=== PATIENT | male | born 1945 | race Caucasian/White ===

== ENCOUNTER → 2024-04-08 | Outpatient (CLI) | payer MEDICARE, SELFPAY ==
[2024-04-08 16:55] LABS: Glucose Estimated Average 163 mg/dL (80-131); Hemoglobin A1C 7.3 % Hgb (4.8-6.0)
[2024-04-08 17:28] LABS: Creatinine MALB Rnd Ur 83 mg/dL (30-125); Microalbumin Creat Ratio 900 mg/gCrea (<30); Microalbumin, Random Urine 747 mg/L (0-300)
[2024-04-08 18:01] LABS: Alanine Aminotransferase < 7 U/L (10-49); Albumin, Serum 4.2 gm/dL (3.4-4.8); Albumin/Globulin Ratio 1.8 (1.2-2.2); Alkaline Phosphatase 66 U/L (46-116); Anion Gap 8 (7-16); Aspartate Amino Transferase < 10 U/L (0-34); BUN/Creatinine Ratio 23 Ratio (12-20); Bilirubin,Total 0.3 mg/dL (0.3-1.2); Blood Urea Nitrogen 18 mg/dL (9-23); Calcium 9.4 mg/dL (8.3-10.6); Calcium (Corrected) 9.4 mg/dL (8.5-10.1); Carbon Dioxide 31.7 mMol/L (20.0-31.0); Cardiac Risk Estimate 4.7 RATIO (4.0-6.7); Chloride 97 mMol/L (98-107); Cholesterol 178 mg/dL (132-200); Creatinine (Component) 0.8 mg/dL (0.6-1.3); Globulin 2.4 gm/dL (2.3-3.5); Glucose 102 mg/dL (74-106); HDL Cholesterol 38 mg/dL (40-60); LDL Cholesterol,Calculated 93 mg/dL (0-130); Osmolality,Calculated 275 (275-295); Potassium 4.1 mMol/L (3.4-5.1); Sodium 137 mMol/L (136-145); Total Protein 6.6 gm/dL (5.7-8.2); Triglycerides 234 mg/dL (30-150); eGFR > 60 See Note
== END | disposition home or self-care (01) ==
LOC: COPL 15:21
PROVIDERS: PCP Specialist; Referring Provider Specialist; Visit Provider Specialist
DX: E11.69 Type 2 diabetes mellitus with other specified complication (principal)
CPT/HCPCS: 36415; 80053; 80061; 82043; 82570; 83036

== ENCOUNTER → 2024-06-18 | Outpatient (CLI) | payer MEDICARE, SELFPAY ==
--- NOTE | 2024-06-18 12:48 | XR_ITS ---
Examination: Bilateral AP knees single view TECHNIQUE: AP bilateral standing knees single view Exam date and time: June 18, 2024 1503 hours FINDINGS: Total right knee arthroplasty. Satisfactory alignment No fracture Severe narrowing, [id number] medial lateral joint spaces left knee with ossified suprapatellar joint bodies noted IMPRESSION: Severe narrowing [id number] medial lateral joint spaces left knee
--- NOTE | 2024-06-18 12:48 | XR_ITS ---
Examination: Knee, left , 3 views Technique: Knee AP, lateral, oblique 3 views Date and time of exam: June 18, 2024 1420 hours INDICATIONS: Knee pain beginning 8 years ago FINDINGS: Advanced tricompartment osteoarthritis Prominent osteopenia Multiple suprapatellar and posterior joint space ossified bodies No fracture IMPRESSION: Advanced tricompartment osteoarthritis
--- NOTE | 2024-06-18 12:48 | XR_ITS ---
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
--- NOTE | 2024-06-18 12:48 | XR_ITS ---
Examination:Left hip AP, lateral, AP pelvis 3 views Technique: Hip AP lateral, AP pelvis, 3 views Exam date and time:June 18, 2024 1420 hours INDICATIONS: Pelvic and left hip pain several days FINDINGS: Old deformity of the left femoral neck Old appearing fractures left inferior and superior pubic rami Moderate narrowing hip joints No acute hip or pelvic fracture IMPRESSION: Moderate bilateral narrowing hip joints No acute hip or pelvic fracture.
== END | disposition home or self-care (01) ==
PROVIDERS: PCP Specialist; Referring Provider Orthopaedic Surgery; Visit Provider Orthopaedic Surgery
DX: M43.26 Fusion of spine, lumbar region (principal); M25.852 Other specified joint disorders, left hip; M17.12 Unilateral primary osteoarthritis, left knee; M25.862 Other specified joint disorders, left knee
CPT/HCPCS: 72100; 73503; 73560; 73564; 73565

== ENCOUNTER → 2024-10-07 | Outpatient (CLI) | payer MEDICARE, SELFPAY ==
--- NOTE | 2024-10-07 15:24 | XR_ITS ---
Examination: Bilateral hips, AP pelvis, 5 views Technique: AP, lateral views both hips, AP pelvis, 5 views Exam date and time: October 07, 2024 1526 hours INDICATIONS: Patient fell last month with injury of both hips, bilateral hip pain. FINDINGS: Severe osteopenia No acute right hip fracture. Left hip shows mild angulation in the subcapital region Bones of the pelvis intact IMPRESSION: No acute right hip fracture Suggest CT scan left hip follow-up to exclude subtle left subcapital hip fracture
== END | disposition home or self-care (01) ==
LOC: SDIM 15:12
PROVIDERS: PCP Specialist; Referring Provider Specialist; Visit Provider Specialist
DX: S79.912A Unspecified injury of left hip, initial encounter (principal); S79.911A Unspecified injury of right hip, initial encounter; W19.XXXA Unspecified fall, initial encounter
CPT/HCPCS: 73523

== ENCOUNTER → 2024-10-13 | Outpatient (CLI) | payer MEDICARE, SELFPAY ==
[2024-10-13 14:52] LABS: Misc Send Out* See Sep Rpt
== END | disposition home or self-care (01) ==
LOC: SLDO 14:40
PROVIDERS: Referring Provider Specialist; Visit Provider Specialist
DX: F11.20 Opioid dependence, uncomplicated (principal)
CPT/HCPCS: 80365; G0480

== ENCOUNTER → 2024-10-25 | Outpatient (CLI) | payer MEDICARE, SELFPAY ==
--- NOTE | 2024-10-25 14:34 | XR_ITS ---
Examination: CT pelvis without intravenous contrast. CT left hip without intravenous contrast 2-D sagittal and coronal reconstructions. Date and time of exam:October 25, 2024, 1500 hours INDICATIONS: Patient fell one month ago with injury to left hip, left hip pain CTDI: vol (mGy) :11 DLP: (mGycm) : 402 Technique: Multiple 3 mm axial sections of the pelvis have been obtained with the 64 slice high resolution scanner. 2-D sagittal and coronal reconstructions. Low dose protocols were performed. One or more of the following dose reduction techniques were used; automated exposure control, adjustment of the mA and/or KV according to patient size, use of iterative reconstruction technique. Findings: Impacted left subcapital hip fracture, acute/subacute Right hip bones of the pelvis intact Prominent osteopenia. Significant prostatomegaly 5.9 cm IMPRESSION: Impacted left subcapital hip fracture
== END | disposition home or self-care (01) ==
LOC: CCTX 14:21
PROVIDERS: PCP Specialist; Referring Provider Specialist; Visit Provider Specialist
DX: S72.092D Other fracture of head and neck of left femur, subsequent encounter for closed fracture with routine healing (principal); W19.XXXD Unspecified fall, subsequent encounter
CPT/HCPCS: 73700

== ENCOUNTER → 2024-11-03 | Outpatient (CLI) | payer MEDICARE, SELFPAY ==
[2024-11-03 13:35] LABS: Glucose Estimated Average 137 mg/dL (80-131); Hemoglobin A1C 6.4 % Hgb (4.8-6.0)
[2024-11-03 14:04] LABS: Alanine Aminotransferase 9 U/L (10-49); Albumin, Serum 4.1 gm/dL (3.4-4.8); Albumin/Globulin Ratio 1.9 (1.2-2.2); Alkaline Phosphatase 59 U/L (46-116); Anion Gap 12 (7-16); Aspartate Amino Transferase 15 U/L (0-34); BUN/Creatinine Ratio 27 Ratio (12-20); Bilirubin,Total 0.2 mg/dL (0.3-1.2); Blood Urea Nitrogen 38 mg/dL (9-23); Calcium 10.1 mg/dL (8.3-10.6); Calcium (Corrected) 10.1 mg/dL (8.5-10.1); Carbon Dioxide 24.7 mMol/L (20.0-31.0); Cardiac Risk Estimate 6.2 RATIO (4.0-6.7); Chloride 102 mMol/L (98-107); Cholesterol 203 mg/dL (132-200); Creatinine (Component) 1.4 mg/dL (0.6-1.3); Globulin 2.2 gm/dL (2.3-3.5); Glucose 79 mg/dL (74-106); HDL Cholesterol 33 mg/dL (40-60); LDL Cholesterol,Calculated 112 mg/dL (0-130); Osmolality,Calculated 285 (275-295); Potassium 4.5 mMol/L (3.4-5.1); Sodium 139 mMol/L (136-145); Thyroid Stimulating Hormone 2.61 uIU/mL (0.55-4.78); Total Protein 6.3 gm/dL (5.7-8.2); Triglycerides 288 mg/dL (30-150); eGFR 51 See Note
[2024-11-03 15:07] LABS: Creatinine MALB Rnd Ur 172 mg/dL (30-125); Microalbumin Creat Ratio 116 mg/gCrea (<30); Microalbumin, Random Urine 199 mg/L (0-300)
== END | disposition home or self-care (01) ==
LOC: COPL 12:39
PROVIDERS: PCP Specialist; Referring Provider Specialist; Visit Provider Specialist
DX: E11.65 Type 2 diabetes mellitus with hyperglycemia (principal); E78.2 Mixed hyperlipidemia
CPT/HCPCS: 36415; 80053; 80061; 82043; 82570; 83036; 84443